=== PATIENT | male | born 1990 | race Caucasian/White ===

== ENCOUNTER 2019-11-14 15:43 | Observation (INO) | payer SELFPAY ==
[~2019-11-14] VITALS: Ht 170.2 cm; Wt 79.5 kg
[2019-11-14 15:45] VITALS: BP 148/79
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
--- NOTE | 2019-11-14 18:06 | NUR ---
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 ALL QUESTIONS ANSWERED.
[2019-11-14] MEDS ORDERED: BALANCED SALT OPHTH IRRIG SOLN 18ML ONE (18:17)
[2019-11-14] MEDS ORDERED: LIDOCAINE 1%-EPI 1:100K, 20ML ONE (18:18)
[2019-11-14] MEDS ORDERED: FENTANYL PF 100 MCG/2ML ONE ×3 (18:30→19:45)
[2019-11-14] MEDS ORDERED: ONDANSETRON 2MG/ML, 2ML ONE (19:19)
[2019-11-14] MEDS ORDERED: PROPOFOL 10 MG/ML, 20ML ONE (19:19)
[2019-11-14] MEDS ORDERED: DEXAMETHASONE 4 MG/ML, 1ML ONE (19:19)
[2019-11-14] MEDS ORDERED: NEOSTIGMINE 1 MG/ML, 10ML ONE (19:19)
[2019-11-14] MEDS ORDERED: ROCURONIUM 10MG/ML,5ML ONE (19:19)
[2019-11-14] MEDS ORDERED: GLYCOPYRROLATE 0.2MG/1ML, 5ML ONE (19:19)
[2019-11-14] MEDS ORDERED: CEFAZOLIN 1,000 MG ONE (19:19)
[2019-11-14] MEDS ORDERED: SUCCINYLCHOLINE 20 MG/ML, 10ML ONE (19:19)
[2019-11-14] MEDS ORDERED: OXYcodone 5 MG/5 ML ORAL.SOL UDC ONE ×2 (19:46→21:53)
[2019-11-14] MEDS: FENTANYL PF 100 MCG/2ML IV PRN ×2 (19:57→20:04)
[2019-11-14] MEDS ORDERED: ONDANSETRON 2MG/ML, 2ML IV PRN (20:00)
[2019-11-14] MEDS ORDERED: hydrALAzine 20 MG/ML, 1ML IV PRN (20:00)
[2019-11-14] MEDS ORDERED: LABETALOL 5MG/ML, 20ML IV PRN (20:00)
[2019-11-14] MEDS ORDERED: OXYcodone 5 MG/5 ML ORAL.SOL UDC PO PRN (20:00)
[2019-11-14] MEDS ORDERED: PROMETHAZINE 25 MG/ML, 1ML IV PRN (20:00)
[2019-11-14] MEDS ORDERED: HYDROmorphone 2 MG/ML, 1ML IVPush PRN (20:00)
[2019-11-14] MEDS ORDERED: MEPERIDINE/PF 25MG/ML,1ML IVPush PRN (20:00)
[2019-11-14] MEDS ORDERED: ACET325T14 PO (21:45)
[2019-11-14] MEDS ORDERED: ACETAMINOPHEN 500 MG TABLET PO PRN (22:30)
[2019-11-14] MEDS ORDERED: OXYcodone IR 5MG TABLET PO PRN (22:30)
== END 2019-11-14 22:00 | disposition home or self-care (01) ==
LOC: ED 17:22 → EDIP 18:05 → 4NE 20:55
PROVIDERS: ADMIT Otolaryngology Facial Plastic Surgery; ATTEND Otolaryngology Facial Plastic Surgery
DX: S02.40FA Zygomatic fracture, left side, initial encounter for closed fracture (principal); K21.9 Gastro-esophageal reflux disease without esophagitis; Y04.0XXA Assault by unarmed brawl or fight, initial encounter; Y93.89 Activity, other specified; Y92.89 Other specified places as the place of occurrence of the external cause
CPT/HCPCS: 21356; 70486; 99284; G0378; J0330; J0690; J1100; J2405; J2704; J3010; J3490; J2710